=== PATIENT | male | born 1980 | race Caucasian/White ===

== ENCOUNTER 2018-04-14 03:04 | Emergency (ER) | payer MEDICAID ==
[2018-04-14 03:05] VITALS: PULSE 112; BMI 26.7
[2018-04-14 03:16] VITALS: BP 132/75; PULSE 77; RESP 16; TEMP 98; O2SAT 99
--- NOTE | 2018-04-14 03:59 | ED PDOC ---
HPI: Male Pain Time Seen by Provider: 04/14/18 03:32 Chief Complaint (Nursing): Male Genitourinary Chief Complaint (Provider): DYSURIA History Per: Patient (37 Y/O MALE WITH DYSURIA X 2-3 DAYS. STATES HE HAS BEEN SEXUALLY ACTIVE WITH A LOT OF DIFFERENT WOMEN. HAS H/O CHLAMYDIA INFECTION. NOTES PRULULENT DISCHARGE FROM [facility].) Past Medical History Reviewed: Historical Data, Nursing Documentation, Vital Signs Vital Signs: Last Vital Signs Temp 98.0 F 04/14/18 03:14 Pulse 77 04/14/18 03:14 Resp 16 04/14/18 03:14 BP 132/75 04/14/18 03:14 Pulse Ox 99 04/14/18 03:14 - Medical History PMH: Atrial Fibrillation Denies: Kidney Stones, Chronic Kidney Disease - Family History Family History: States: Unknown Family Hx - Immunization History Hx Tetanus Toxoid Vaccination: No Hx Influenza Vaccination: No Hx Pneumococcal Vaccination: No - Home Medications Home Medications: Ambulatory Orders Medication Instructions Recorded No Known Home Med 08/29/15 - Allergies Allergies/Adverse Reactions: Allergies Allergy/AdvReac Type Severity Reaction Status Date / Time No Known Allergies Allergy Verified 08/27/15 12:59 Review of Systems ROS Statement: Except As Marked, All Systems Reviewed And Found Negative Physical Exam - Reviewed Nursing Documentation Reviewed: Yes Vital Signs Reviewed: Yes - Physical Exam Appears: Positive for: Well, Non-toxic, No Acute Distress Head Exam: Positive for: ATRAUMATIC, NORMAL INSPECTION, NORMOCEPHALIC Skin: Positive for: Normal Color, Warm, DRY Eye Exam: Positive for: EOMI, Normal appearance, PERRL ENT: Positive for: Normal ENT Inspection Neck: Positive for: Normal, Painless ROM Cardiovascular/Chest: Positive for: Regular Rate, Rhythm Respiratory: Positive for: CNT, Normal Breath Sounds Gastrointestinal/Abdominal: Positive for: Normal Exam, Soft Back: Positive for: Normal Inspection Extremity: Positive for: Normal ROM Neurologic/Psych: Positive for: Alert, Oriented - ECG O2 Sat by Pulse Oximetry: 99 - Progress ED Course And Treament: ROCEPHIN 250 MG IM ZITHROMAX 1 GM PO X 1 DOSE Disposition - Clinical Impression Clinical Impression: Urethritis - Patient ED Disposition Is Patient to be Admitted: No - Disposition Referrals: [facility] [Outside] Disposition: Routine/Home Disposition Time: 03:59 Condition: FAIR Instructions: Urethritis (DC)
[2018-04-14] MEDS ORDERED: cefTRIAXone (Rocephin) 250 mg Inj ONE (04:09)
[2018-04-14] MEDS: cefTRIAXone (Rocephin) 250 mg Inj IM STA (04:16)
== END 2018-04-14 04:21 | disposition home or self-care (01) ==
LOC: H.ER 03:04
DX: A54.9 Gonococcal infection, unspecified (principal)
CPT/HCPCS: 87086; 87491; 87591; 96372; 99282; J0696

== ENCOUNTER 2018-06-20 14:44 | Emergency (ER) | payer MEDICAID ==
[2018-06-20 14:45] VITALS: PULSE 112; BMI 26.7
[2018-06-20 14:52] VITALS: O2SAT 100
--- NOTE | 2018-06-20 15:05 | ED PDOC ---
HPI: Skin/Bite Injury Time Seen by Provider: 06/20/18 14:50 Chief Complaint (Nursing): Abnormal Skin Integrity Chief Complaint (Provider): Abnormal Skin Integrity History Per: Patient History/Exam Limitations: no limitations Onset/Duration Of Symptoms: Days (2x) Current Symptoms Are (Timing): Still Present Quality Of Symptoms: Painful Severity: Moderate Additional Complaint(s): 37 year old male with a past medical history of atrial fibrillation presents to the ED for an evaluation of left lower lip swelling that started yesterday and worsened today. Patient states that he was pushing on an open pimple on his lip prior to the swelling. Patient denies having fevers, chills, and falls. Patient states that he is on Lisinopril and Xarelto. PMD: None provided Past Medical History Reviewed: Historical Data, Nursing Documentation, Vital Signs Vital Signs: Last Vital Signs Temp 97.6 F 06/20/18 14:50 Pulse 91 H 06/20/18 14:50 Resp 20 06/20/18 14:50 BP 125/67 06/20/18 14:50 Pulse Ox 100 06/20/18 14:50 AJC Report Viewed: Yes - Medical History PMH: Atrial Fibrillation Denies: Kidney Stones, Chronic Kidney Disease - Surgical History Surgical History: No Surg Hx - Family History Family History: States: No Known Family Hx - Social History Current smoker - smoking cessation education provided: Yes Alcohol: None - Immunization History Hx Tetanus Toxoid Vaccination: No Hx Influenza Vaccination: No Hx Pneumococcal Vaccination: No - Home Medications Home Medications: Ambulatory Orders Medication Instructions Recorded Cephalexin [Keflex] 500 mg PO QID #28 capsule 06/20/18 DiphenhydrAMINE [Benadryl] 50 mg PO Q6 PRN #24 cap 06/20/18 Sulfamethoxazole/Trimethoprim 1 tab PO BID #14 tablet 06/20/18 [Bactrim Ds Tablet] - Allergies Allergies/Adverse Reactions: Allergies Allergy/AdvReac Type Severity Reaction Status Date / Time No Known Allergies Allergy Verified 06/20/18 14:49 Review of Systems ROS Statement: Except As Marked, All Systems Reviewed And Found Negative Skin: Positive for: Other (left lower lip swelling) Physical Exam - Reviewed Nursing Documentation Reviewed: Yes Vital Signs Reviewed: Yes - Physical Exam Appears: Positive for: Well, Non-toxic, No Acute Distress Head Exam: Positive for: ATRAUMATIC, NORMOCEPHALIC Skin: Positive for: Normal Color, Warm, Dry ENT: Positive for: Other (moderate swelling noted to the left lateral lip, minimal erythema noted.) Neurologic/Psych: Positive for: Alert, Oriented (3x) - ECG O2 Sat by Pulse Oximetry: 100 (RA) Pulse Ox Interpretation: Normal Medical Decision Making Medical Decision Makin:50 Initial impression: 37 year old male with left lower lip swelling Scribe Attestation: Documented by Yoly Ag, acting as a scribe for Semaj Corey PA-C. Provider Scribe Attestation: All medical record entries made by the Scribe were at my direction and personally dictated by me. I have reviewed the chart and agree that the record accurately reflects my personal performance of the history, physical exam, medical decision making, and the department course for this patient. I have also personally directed, reviewed, and agree with the discharge instructions and disposition. Disposition - Clinical Impression Clinical Impression: Lip swelling, Skin infection - Patient ED Disposition Is Patient to be Admitted: No - Disposition Disposition: Routine/Home Disposition Time: 15:12 Condition: FAIR Additional Instructions: return to ED or pmd in 2 days for re-evaluation Prescriptions: Cephalexin [Keflex] 500 mg PO QID #28 capsule DiphenhydrAMINE [Benadryl] 50 mg PO Q6 PRN #24 cap PRN Reason: Swelling Sulfamethoxazole/Trimethoprim [Bactrim Ds Tablet] 1 tab PO BID #14 tablet Instructions: Wound Infection
[2018-06-20 15:36] VITALS: BP 127/82; PULSE 87; RESP 18; TEMP 98
== END 2018-06-20 15:30 | disposition home or self-care (01) ==
LOC: H.ER 14:44
DX: L08.9 Local infection of the skin and subcutaneous tissue, unspecified (principal)

== ENCOUNTER 2018-06-21 14:11 | Emergency (ER) | payer MEDICAID ==
[2018-06-21 14:11] VITALS: PULSE 112
[2018-06-21 14:24] VITALS: RESP 16; BMI 24.0
[2018-06-21] MEDS ORDERED: DiphenhydrAMINE 50 mg/ml Inj IVP STA (14:42)
[2018-06-21] MEDS ORDERED: DiphenhydrAMINE 50 mg/ml Inj ONE (14:51)
--- NOTE | 2018-06-21 14:59 | ED PDOC ---
HPI: Skin/Bite Injury Time Seen by Provider: 06/21/18 14:41 Chief Complaint (Nursing): Abnormal Skin Integrity Chief Complaint (Provider): Abnormal Skin Integrity History Per: Patient History/Exam Limitations: no limitations Onset/Duration Of Symptoms: Days (3x days) Current Symptoms Are (Timing): Still Present Quality Of Symptoms: Swollen Severity: Moderate Additional Complaint(s): 37 year old male with a past medical history of atrial fibrillation (currently taking Xarelto and Lisinopril) presents to the ED for an evaluation of left lower lip swelling that has been ongoing for 3x days, after he picked an open p imple 2x days ago. Patient was seen in the ED yesterday for the same complaint, and was discharged home with Keflex, Bactrim, and Benadryl, but reports no improvement. Patient reports that the swelling has worsened, and denies having fevers and chills. PMD: None provided Past Medical History Reviewed: Historical Data, Nursing Documentation, Vital Signs Vital Signs: Last Vital Signs Temp 97.8 F 06/21/18 14:23 Pulse 78 06/21/18 14:23 Resp 16 06/21/18 14:23 BP 113/79 06/21/18 14:23 Pulse Ox 98 06/21/18 14:23 JAC Report Viewed: Yes - Medical History PMH: Atrial Fibrillation Denies: Kidney Stones, Chronic Kidney Disease - Surgical History Surgical History: No Surg Hx - Family History Family History: States: No Known Family Hx - Social History Current smoker - smoking cessation education provided: Yes - Immunization History Hx Tetanus Toxoid Vaccination: No Hx Influenza Vaccination: No Hx Pneumococcal Vaccination: No - Home Medications Home Medications: Ambulatory Orders Medication Instructions Recorded Cephalexin [Keflex] 500 mg PO QID #28 capsule 06/20/18 DiphenhydrAMINE [Benadryl] 50 mg PO Q6 PRN #24 cap 06/20/18 Sulfamethoxazole/Trimethoprim 1 tab PO BID #14 tablet 06/20/18 [Bactrim Ds Tablet] - Allergies Allergies/Adverse Reactions: Allergies Allergy/AdvReac Type Severity Reaction Status Date / Time No Known Allergies Allergy Verified 06/20/18 14:49 Review of Systems ROS Statement: Except As Marked, All Systems Reviewed And Found Negative Constitutional: Negative for: Fever, Chills Skin: Positive for: Other (left lower lip swelling) Physical Exam - Reviewed Nursing Documentation Reviewed: Yes Vital Signs Reviewed: Yes - Physical Exam Appears: Positive for: Well, Non-toxic, No Acute Distress Head Exam: Positive for: ATRAUMATIC, NORMOCEPHALIC Skin: Positive for: Normal Color, Warm, Dry ENT: Positive for: Other (moderate left lower lip swelling with no surrounding erythema.) Neurologic/Psych: Positive for: Alert, Oriented (3x) - Laboratory Results Result Diagrams: 06/21/18 15:10 06/21/18 15:10 - ECG O2 Sat by Pulse Oximetry: 98 (RA) Pulse Ox Interpretation: Normal - Progress ED Course And Treament: vancomycin 1 gm iv x 1 dose ancef 1 gm i vx 1 dose advised warm compresses by region of induration and return in 2 days for I&D Medical Decision Making Medical Decision Makin:41 Initial impression: 37 year old male with left lower lip swelling Initial plan: * CMP * CBC with diff * blood culture * benadryl 50 mg IVP * solu-medrol 125 mg IVP * reevaluation Scribe Attestation: Documented by Yoly Ag, acting as a scribe for Semaj Corey PA-C. Provider Scribe Attestation: All medical record entries made by the Scribe were at my direction and personally dictated by me. I have reviewed the chart and agree that the record accurately reflects my personal performance of the history, physical exam, medical decision making, and the department course for this patient. I have also personally directed, reviewed, and agree with the discharge instructions and disposition. Disposition - Clinical Impression Clinical Impression: Facial abscess, Facial cellulitis - Patient ED Disposition Is Patient to be Admitted: No - Disposition Disposition: Routine/Home Disposition Time: 17:03 Condition: FAIR Additional Instructions: CONTINUE ANTIBIOTICS. RETURN IN 2 DAYS Instructions: Skin Abscess, Boil, Cellulitis (Skin Infection), Adult (DC)
[2018-06-21 15:33] LABS: BASO % 0.3 % (0.0-2.0); EOS # 0.2 K/uL (0.0-0.7); HEMOGLOBIN 14.4 g/dL (12.0-18.0); LYMPH # 1.8 K/uL (1.0-4.3); LYMPH % 16.8 % (20.0-40.0); MEAN CELL VOLUME 86.2 fl (80.0-94.0); MEAN CORPUSCULAR HEMOGLOBIN 27.5 pg (27.0-31.0); MEAN CORPUSCULAR HGB CONC 31.9 g/dL (33.0-37.0); MEAN PLATELET VOLUME 10.6 fl (7.2-11.7); MONO # 0.8 K/uL (0.0-0.8); MONO % 7.3 % (0.0-10.0); NEUT # 7.9 K/uL (1.8-7.0); NEUT % 73.6 % (50.0-75.0); RBC 5.23 Mil/uL (4.40-5.90); RED CELL DISTRIBUTION WIDTH 13.7 % (11.5-14.5); WHITE BLOOD COUNT 10.7 K/uL (4.8-10.8)
[2018-06-21 15:39] LABS: INR 1.7; PROTHROMBIN TIME 19.1 Seconds (9.8-13.1)
[2018-06-21 15:41] LABS: PARTIAL THROMBOPLASTIN TIME 48.8 Seconds (25.6-37.1)
[2018-06-21 15:52] LABS: ALB/GLOB RATIO 1.4 (1.0-2.1); ALBUMIN 4.3 g/dL (3.5-5.0); ALT/SGPT 28 U/L (21-72); AST/SGOT 20 U/L (17-59); BLOOD UREA NITROGEN 13 mg/dl (9-20); CALCIUM 9.4 mg/dL (8.4-10.2); GFR NON-AFRICAN AMERICAN > 60
[2018-06-21] MEDS ORDERED: ceFAZolin IV 1 gm in Dextrose 1 GM/50 ML BAG IVPB STA (16:04)
[2018-06-21] MEDS ORDERED: Vancomycin 1 g Inj ONE (16:12)
[2018-06-21 17:07] VITALS: BP 126/83; PULSE 85; TEMP 98.7; O2SAT 99
== END 2018-06-21 17:16 | disposition home or self-care (01) ==
LOC: H.ER 14:11
DX: L02.01 Cutaneous abscess of face (principal); L03.211 Cellulitis of face
CPT/HCPCS: 80053; 85025; 85610; 85730; 87040; 96374; 96375; 99283; J0690; J1200; J2930

== ENCOUNTER 2018-06-22 12:42 | Emergency (ER) | payer MEDICAID ==
[2018-06-22 12:43] VITALS: PULSE 112; BMI 24.0
[2018-06-22 12:51] VITALS: RESP 18
[2018-06-22] MEDS ORDERED: Lidocaine 2% Inj (20ml) INFIL ONE (13:45)
--- NOTE | 2018-06-22 13:45 | ED PDOC ---
HPI: Skin/Bite Injury Time Seen by Provider: 06/22/18 13:40 Chief Complaint (Nursing): Abnormal Skin Integrity Chief Complaint (Provider): Lower lip swelling History Per: Patient History/Exam Limitations: no limitations Onset/Duration Of Symptoms: Days (3x) Current Symptoms Are (Timing): Still Present Quality Of Symptoms: Painful, Swollen Additional Complaint(s): 37 year old male presents to the ED for an evaluation of left lower lip swelling onset for 3 days. He is currently taking Lisinopril and Xarelto. Patient was seen in the ED with the same complaint and discharged with Keflex, Bactrim and Benadryl as well as advised to return within 2 days for incision and drainage (I/D). He states he did not take his medication and the swelling is moderate with I/D earlier. Otherwise, patient denies fever or chills. PMD: non H provider Past Medical History Reviewed: Historical Data, Nursing Documentation, Vital Signs Vital Signs: Last Vital Signs Temp 98.3 F 06/22/18 12:49 Pulse 82 06/22/18 12:49 Resp 18 06/22/18 12:49 BP 119/70 06/22/18 12:49 Pulse Ox 98 06/22/18 12:49 - Medical History PMH: Atrial Fibrillation Denies: Kidney Stones, Chronic Kidney Disease - Family History Family History: States: Unknown Family Hx - Social History Current smoker - smoking cessation education provided: Yes (Current Some Days Smoker) Alcohol: None Drugs: Cocaine - Immunization History Hx Tetanus Toxoid Vaccination: No Hx Influenza Vaccination: No Hx Pneumococcal Vaccination: No - Home Medications Home Medications: Ambulatory Orders Medication Instructions Recorded Cephalexin [Keflex] 500 mg PO QID #28 capsule 06/20/18 DiphenhydrAMINE [Benadryl] 50 mg PO Q6 PRN #24 cap 06/20/18 Sulfamethoxazole/Trimethoprim 1 tab PO BID #14 tablet 06/20/18 [Bactrim Ds Tablet] Sulfamethoxazole/Trimethoprim 2 each PO BID #28 tablet 06/22/18 [Bactrim Ds Tablet] traMADol [Ultram] 50 mg PO Q8 PRN #15 tab 06/22/18 - Allergies Allergies/Adverse Reactions: Allergies Allergy/AdvReac Type Severity Reaction Status Date / Time No Known Allergies Allergy Verified 06/22/18 12:59 Review of Systems ROS Statement: Except As Marked, All Systems Reviewed And Found Negative Constitutional: Negative for: Fever, Chills ENT: Positive for: Other (lower lip swelling) Respiratory: Negative for: Cough Skin: Negative for: Rash Physical Exam - Reviewed Nursing Documentation Reviewed: Yes Vital Signs Reviewed: Yes - Physical Exam Appears: Positive for: Non-toxic, No Acute Distress Head Exam: Positive for: ATRAUMATIC, NORMAL INSPECTION, NORMOCEPHALIC Skin: Positive for: Normal Color, Warm, Dry. Negative for: Rash Eye Exam: Positive for: EOMI, Normal appearance, PERRL ENT: Positive for: Other (Increased erythema and induration on left lower lip and increased swelling on left upper lip ) Neurologic/Psych: Positive for: Alert, Oriented (x3). Negative for: Motor/Sensory Deficits - ECG O2 Sat by Pulse Oximetry: 98 (RA) Pulse Ox Interpretation: Normal Medical Decision Making Medical Decision Making: Time: 1345 Initial impression: left lower lip swelling Initial Plan: Lidocaine 2% 20ml Reevaluation PROCEDURE: INCISION & DRAINAGE Performed by the emergency provider Indication: Abscess Location: left lower lip Preparation: The area was prepped and draped in the usual sterile fashion and was cleansed. Local infiltration of Lidocaine 2% was used for anesthesia. Procedure: The most fluctuant portion of the abscess was drained with needle aspiration with 2cc serum sanguineous and 2nd with minimal purulent discharge Post-Procedure: On exam the abscess is notably less fluctuant. The patient tolerated the procedure well, and there were no complications. Cultured: YES ------- Scribe Attestation: Documented by Mireya Davalos, acting as a scribe for Semaj Corey PA-C. Provider Scribe Attestation: All medical record entries made by the Scribe were at my direction and personally dictated by me. I have reviewed the chart and agree that the record accurately reflects my personal performance of the history, physical exam, medical decision making, and the department course for this patient. I have also personally directed, reviewed, and agree with the discharge instructions and disposition. Disposition - Clinical Impression Clinical Impression: Abscess, Cellulitis and abscess of face - Patient ED Disposition Is Patient to be Admitted: No - Disposition Referrals: Abbe Macdonald MD [Medical Doctor] - Disposition: Routine/Home Disposition Time: 14:39 Prescriptions: Sulfamethoxazole/Trimethoprim [Bactrim Ds Tablet] 2 each PO BID #28 tablet traMADol [Ultram] 50 mg PO Q8 PRN #15 tab PRN Reason: Pain, Moderate (4-7) Instructions: Cellulitis and Erysipelas (Skin Infections), Boil
[2018-06-22] MEDS ORDERED: Lidocaine 1% Inj (20ml) ONE (13:47)
[2018-06-22 15:42] VITALS: BP 130/72; PULSE 78; TEMP 98
[2018-06-22 16:00] VITALS: O2SAT 98
== END 2018-06-22 15:41 | disposition home or self-care (01) ==
LOC: H.ER 12:42
DX: L02.01 Cutaneous abscess of face (principal); L03.211 Cellulitis of face; F17.200 Nicotine dependence, unspecified, uncomplicated